=== PATIENT | male | born 1960 | race Caucasian/White ===

== ENCOUNTER 2017-08-18 12:25 | Emergency (ER) | payer MEDICAID ==
--- NOTE | 2017-08-18 12:36 | ED Physician Documentation ---
PD HPI ABD PAIN - Stated complaint Stated Complaint: UPPER GI PX - Chief complaint Chief Complaint: Cardiac - History obtained from History obtained from: Patient - History of Present Illness Timing - onset: Today (this morning about 5 am awoke with upper abd pain and had vomiting several times. Pain continues through morning.) Timing - duration: Hours Timing - details: Abrupt onset, Still present, Waxing and waning (feels better with vomiting) Quality: Cramping, Aching, Pain Location: Epigastric Radiation: Lower back Improved by: Vomiting Worsened by: Palpation. No: Breathing, Position Associated symptoms: Nausea, Vomiting. No: Fever, Diarrhea Similar symptoms before: Has not had sx before Recently seen: Not recently seen Review of Systems Constitutional: denies: Fever, Chills, Myalgias Nose: denies: Rhinorrhea / runny nose, Congestion Throat: denies: Sore throat Cardiac: denies: Chest pain / pressure, Palpitations Respiratory: denies: Dyspnea, Cough GI: reports: Abdominal Pain, Nausea, Vomiting. denies: Diarrhea, Hematemesis, Bloody / black stool : denies: Dysuria, Frequency Skin: denies: Rash, Lesions Neurologic: reports: Generalized weakness. denies: Focal weakness, Numbness, Near syncope Endocrine: denies: Weight loss, Easy bruising / bleeding Immunocompromised: denies: Immunocompromised PD PAST MEDICAL HISTORY - Past Medical History Cardiovascular: Hypertension, High cholesterol Respiratory: None Endocrine/Autoimmune: Type 1 diabetes, HyPOthyroidism GI: None : None HEENT: None Psych: None Musculoskeletal: Fatigue, Chronic back pain - Past Surgical History Past Surgical History: No - Present Medications Home Medications: Ambulatory Orders Medication Instructions Recorded Confirmed Aspirin [Aspir-Low] 81 mg PO DAILY 05/15/14 03/21/15 Gabapentin 300 mg PO 5XD 05/15/14 03/21/15 Levothyroxine [Synthroid] 1 mcg PO QDAC 05/15/14 03/21/15 Metformin HCl 500 mg PO BID 05/15/14 03/21/15 Methocarbamol [Robaxin] 500 mg PO TID 05/15/14 03/21/15 Naproxen [Naprosyn] 500 mg PO BID 05/15/14 03/21/15 Sertraline HCl [Zoloft] 25 mg PO DAILY 05/15/14 03/21/15 Simvastatin 40 mg PO DAILY 05/15/14 03/21/15 Docusate Sodium 100 mg PO DAILY #30 capsule 08/18/17 Famotidine [Pepcid] 20 mg PO BID #30 tablet 08/18/17 HYDROcod/ACETAM 5/325 [[place] 5/325] 1 tab PO Q6H PRN #15 tablet 08/18/17 Lidocaine Viscous 2% [Xylocaine 5 ml PO Q4H PRN #1 bottle 08/18/17 Viscous 2%] Ondansetron Odt [Zofran] 4 mg TL Q6H PRN #15 tablet 08/18/17 - Allergies Allergies/Adverse Reactions: Allergies Allergy/AdvReac Type Severity Reaction Status Date / Time morphine Allergy swelling Verified 03/21/15 15:01 niacin Allergy Rash Verified 05/15/14 16:44 phenazopyridine HCl * AdvReac Emesis Verified 05/15/14 16:44 [From Pyridium] sulfamethoxazole AdvReac Emesis Verified 05/15/14 16:44 [From Bactrim] trimethoprim [From Bactrim] AdvReac Emesis Verified 05/15/14 16:44 - Social History Does the pt smoke?: No Smoking Status: Never smoker Does the pt have substance abuse?: No - Immunizations Immunizations are current?: Yes PD ED PE NORMAL - Vitals Vital signs reviewed: Yes - General General: Alert and oriented X 3, No acute distress, Well developed/nourished - Neck Neck: Supple, no meningeal sign, No adenopathy - Cardiac Cardiac: RRR, No murmur - Respiratory Respiratory: Clear bilaterally - Abdomen Abdomen: Normal bowel sounds, Soft, Non distended, No organomegaly, Other (some tenderness without guarding in epigastric area) - Back Back: No CVA TTP - Derm Derm: Normal color, Warm and dry - Extremities Extremities: No deformity, No tenderness to palpate, No edema, No calf tenderness / cord - Neuro Neuro: Alert and oriented X 3, No motor deficit, Normal speech - Psych Psych: Normal mood, Normal affect Results - Vitals Vitals: Oxygen O2 Source Room air - EKG (time done) 12:33 Rate: Rate (enter#) (60) Rhythm: NSR [place]: Normal Intervals: Normal MT QRS: Normal Ischemia: Normal ST segments. No: ST elevation c/w ischemia, ST depression - Labs Labs: Laboratory Tests 08/18/17 08/18/17 08/18/17 12:40 12:40 12:40 WBC 10.0 RBC 4.47 L Hgb 14.1 Hct 40.7 L MCV 91.1 MCH 31.5 H MCHC 34.5 RDW 13.1 Plt Count 173 MPV 7.7 Neut # (Auto) 7.5 H Lymph # (Auto) 1.7 [place] # (Auto) 0.6 Eos # (Auto) 0.1 Baso # (Auto) 0.0 Absolute Nucleated RBC 0.00 Nucleated RBC % 0.0 Sodium 134 L Potassium 4.0 Chloride 99 L Carbon Dioxide 27 Anion Gap 8.0 BUN 21 H Creatinine 0.7 Estimated GFR (MDRD) 116 Glucose 141 H Calcium 9.3 Total Bilirubin 0.8 AST 25 ALT 27 Alkaline Phosphatase 90 Troponin I < 0.04 Total Protein 8.3 H Albumin 4.7 Globulin 3.6 Albumin/Globulin Ratio 1.3 Lipase 26 - Rads (name of study) chest Radiology: Prelim report reviewed, EMP read contemporaneously (no acute problem) upper abd US Radiology: Prelim report reviewed (fatty liver; no gallstones) PD MEDICAL DECISION MAKING - ED course Complexity details: reviewed results, considered differential (much improved with GI cocktail. Other labs are good with normal ECG and Trop, normal lipase, CXR. ), d/w patient - Sepsis Event Vital Signs: Oxygen O2 Source Room air Departure - Departure Disposition: 01 Home, Self Care Clinical Impression: Epigastric abdominal pain Condition: Stable Record reviewed to determine appropriate education?: Yes Instructions: ED PUD Vs Gastritis, ED Epigastric Pain [facility] Follow-Up: Kwaku Ulloa MD [Primary Care Provider] - Prescriptions: Docusate Sodium 100 mg PO DAILY #30 capsule Famotidine [Pepcid] 20 mg PO BID #30 tablet HYDROcod/ACETAM 5/325 [[place] 5/325] 1 tab PO Q6H PRN #15 tablet PRN Reason: Pain Lidocaine Viscous 2% [Xylocaine Viscous 2%] 5 ml PO Q4H PRN #1 bottle PRN Reason: Pain Ondansetron Odt [Zofran] 4 mg TL Q6H PRN #15 tablet PRN Reason: Nausea / Vomiting Comments: Frequent fluids and bland food for the next several days. Use famotidine twice daily to reduce stomach acids. Lidocaine if needed to coat the stomach and have symptom relief. You can use antacids with it such as Maalox or Mylanta. Consider using some antacid 4 times a day regularly. Add Tylenol or hydrocodone if needed for pain. Do not use any anti-inflammatories for the next couple of weeks. Ondansetron if needed for nausea. Uses stool softener daily to really reduce the chance of constipation from the medications. Call your primary care for an appointment follow-up for 2-3 days from now. Return sooner if worsening again. Your gallbladder pancreas and liver appear normal. Presume this is an irritation of the stomach such as gastritis or ulcer. Your heart also appears normal with EKG and blood tests. Discharge Date/Time: 08/18/17 16:19
[2017-08-18 12:45] LABS: BASOPHILS % (AUTO) 0.4 %; EOSINOPHILS # (AUTO) 0.1 10^3/uL (0.0-0.7); HGB - HEMOGLOBIN 14.1 g/dL (14.0-18.0); LYMPHOCYTES # (AUTO) 1.7 10^3/uL (1.5-3.5); MEAN CORPUSCULAR HEMOGLOBIN 31.5 pg (27.0-31.0); MEAN CORPUSCULAR HGB CONC 34.5 g/dL (32.0-36.0); MEAN CORPUSCULAR VOLUME 91.1 fL (80.0-94.0); MEAN PLATELET VOLUME 7.7 fL (7.4-11.4); MONOCYTES # (AUTO) 0.6 10^3/uL (0.0-1.0); MONOCYTES % (AUTO) 6.4 %; NEUTROPHILS # (AUTO) 7.5 10^3/uL (1.5-6.6); NEUTROPHILS % (AUTO) 75.2 %; PLT - PLATELET COUNT 173 10^3/uL (130-450); RED BLOOD COUNT 4.47 10^6/uL (4.70-6.10); RED CELL DISTRIBUTION WIDTH 13.1 % (12.0-15.0)
[2017-08-18] MEDS ORDERED: SODIUM CHLORIDE 0.9% 1,000 ML IV ONE (12:48)
[2017-08-18] MEDS ORDERED: ONDANSETRON 4 MG/2 ML VIAL IVP STA (12:48)
[2017-08-18] MEDS ORDERED: MAG HYDROX/AL HYDROX/SIMETH 30 ML UDC PO STA (12:49)
[2017-08-18] MEDS ORDERED: FAMOTIDINE 20 MG/50 ML 50 ML IV ONE (12:49)
[2017-08-18] MEDS ORDERED: LIDOCAINE VISCOUS 2% 15 ML UDC MM STA (12:49)
[2017-08-18] MEDS ORDERED: fentaNYL 100 MCG/2 ML VIAL IVP STA (12:49)
[2017-08-18 12:57] LABS: ALBUMIN 4.7 g/dL (3.2-5.5); ALBUMIN/GLOBULIN RATIO 1.3 (1.0-2.2); BILIRUBIN,TOTAL 0.8 mg/dL (0.2-1.0); CALCIUM 9.3 mg/dL (8.5-10.3); CREATININE 0.7 mg/dL (0.6-1.2); TOTAL PROTEIN 8.3 g/dL (6.7-8.2)
--- NOTE | 2017-08-18 13:19 | XRAY Report ---
Procedure Date: 08/18/2017 Accession Number: [id number] / [id number] Procedure: XR - Chest 2 View X-Ray CPT Code: 84561 FULL RESULT: EXAM: CHEST RADIOGRAPHY EXAM DATE: 08/18/2017 01:04 PM. CLINICAL HISTORY: Epigastric pain. COMPARISON: None. TECHNIQUE: 2 views. FINDINGS: Lungs/Pleura: No focal opacities evident. No pleural effusion. No pneumothorax. Normal volumes. Mediastinum: Heart and mediastinal contours are unremarkable. Other: None. IMPRESSION: Normal 2-view chest radiography. RAD[facility]
[2017-08-18] MEDS ORDERED: HYDROmorphone 2 MG/ML VIAL IVP STA ×2 (13:58→15:47)
[2017-08-18] MEDS ORDERED: SUCRALFATE 1 GM/10 ML UDC PO STA (14:28)
--- NOTE | 2017-08-18 14:42 | Ultrasound Report ---
Procedure Date: 08/18/2017 Accession Number: [id number] / [id number] Procedure: US - Abdomen Limited CPT Code: FULL RESULT: EXAM: Abdomen Limited DATE: 08/18/2017 2:32 PM CLINICAL HISTORY: epigastric/right upper abd pain onset this AM TECHNIQUE: Real time scanning by the computer numeric control setter was saved static images reviewed COMPARISON: None FINDINGS: Liver measures 18.7 cm longitudinally. There is increased echogenicity consistent with fatty infiltration. Focal sparing is noted near the gallbladder. Gallbladder appears normal. No stones or wall thickening. Common bile duct 5.3 mm. Unremarkable right kidney, 12.7 cm longitudinally. Free fluid: None. Other: Incidental note made of a fluid and debris filled distended stomach. IMPRESSION: Fatty infiltration of the liver. No gallstones.
[2017-08-18 15:56] VITALS: BP 121/74
== END 2017-08-18 16:19 | disposition home or self-care (01) ==
LOC: ED 12:25
DX: R10.13 Epigastric pain (principal); E03.9 Hypothyroidism, unspecified; E10.9 Type 1 diabetes mellitus without complications; E78.00 Pure hypercholesterolemia, unspecified; I10 Essential (primary) hypertension; Z79.82 Long term (current) use of aspirin
CPT/HCPCS: 36415; 71046; 76705; 80053; 83690; 84484; 85025; 93005; 96365; 96375; 96376; 99284; 99285; A9270; J1170

== ENCOUNTER 2018-01-12 19:18 | Emergency (ER) | payer MEDICAID ==
[2018-01-12 20:00] LABS: BILIRUBIN,URINE NEGATIVE (NEGATIVE); GLUCOSE, URINE (UA) NEGATIVE (NEGATIVE); KETONES,URINE (UA) NEGATIVE (NEGATIVE); LEUKOCYTE ESTERASE, URINE NEGATIVE (NEGATIVE); NITRITE,URINE NEGATIVE (NEGATIVE); OCCULT BLOOD,URINE LARGE (NEGATIVE); PH,URINE 5.5 PH (5.0-7.5); PROTEIN,URINE 30 mg/dL (NEGATIVE); UROBILINOGEN,URINE 0.2 (NORMAL) E.U./dL (NORMAL)
[2018-01-12 20:10] LABS: CLARITY,URINE CLOUDY (CLEAR); RBC,URINE TNTC /HPF (0-5)
[2018-01-12 20:11] LABS: BACTERIA,URINE None Seen /HPF (None Seen); SQUAMOUS EPITHELIAL CELL,UR NONE SEEN (<= Few)
--- NOTE | 2018-01-12 23:36 | ED Physician Documentation ---
PD HPI ABD PAIN - Stated complaint Stated Complaint: MALE /ABD PX - Chief complaint Chief Complaint: Back Pain - History obtained from History obtained from: Patient - History of Present Illness Timing - onset: How many weeks ago (1) Timing - duration: Weeks (1 week of flank pain, mainly left, and worse the past 3 days. Says was seen and Dx with kidney stone and on oral emds without improvement. Having hematuria still.) Timing - details: Gradual onset, Still present, Waxing and waning Quality: Aching, Sharp, Pain Location: Suprapubic, LLQ Radiation: Left flank Improved by: No: Eating, Position Worsened by: No: Eating, Breathing, Position, Palpation Associated symptoms: Nausea, Hematuria. No: Fever, Vomiting, Diarrhea, Constipation, Dysuria Similar symptoms before: Diagnosis (has had kidney stones in the past) Recently seen: Clinic Review of Systems Constitutional: denies: Fever Nose: denies: Rhinorrhea / runny nose, Congestion Throat: denies: Sore throat Cardiac: denies: Chest pain / pressure Respiratory: denies: Cough GI: reports: Abdominal Pain, Nausea. denies: Vomiting, Constipation, Diarrhea : reports: Hematuria. denies: Dysuria, Frequency, Discharge Skin: denies: Rash Neurologic: denies: Generalized weakness, Near syncope PD PAST MEDICAL HISTORY - Past Medical History Cardiovascular: Hypertension, High cholesterol Respiratory: None Endocrine/Autoimmune: Type 1 diabetes, HyPOthyroidism GI: None : None, Kidney stones HEENT: None Psych: None Musculoskeletal: Fatigue, Chronic back pain - Past Surgical History Past Surgical History: No - Present Medications Home Medications: Ambulatory Orders Medication Instructions Recorded Confirmed Aspirin [Aspir-Low] 81 mg PO DAILY 05/15/14 03/21/15 Gabapentin 300 mg PO 5XD 05/15/14 03/21/15 Levothyroxine [Synthroid] 1 mcg PO QDAC 05/15/14 03/21/15 Metformin HCl 500 mg PO BID 05/15/14 03/21/15 Methocarbamol [Robaxin] 500 mg PO TID 05/15/14 03/21/15 Naproxen [Naprosyn] 500 mg PO BID 05/15/14 03/21/15 Sertraline HCl [Zoloft] 25 mg PO DAILY 05/15/14 03/21/15 Simvastatin 40 mg PO DAILY 05/15/14 03/21/15 Docusate Sodium 100 mg PO DAILY #30 capsule 08/18/17 Famotidine [Pepcid] 20 mg PO BID #30 tablet 08/18/17 HYDROcod/ACETAM 5/325 [[place] 5/325] 1 tab PO Q6H PRN #15 tablet 08/18/17 Lidocaine Viscous 2% [Xylocaine 5 ml PO Q4H PRN #1 bottle 08/18/17 Viscous 2%] Ondansetron Odt [Zofran] 4 mg TL Q6H PRN #15 tablet 08/18/17 Naproxen 375 mg PO BID #20 tablet 01/13/18 Oxycodone HCl/Acetaminophen 1 - 2 each PO Q6H PRN #20 tablet 01/13/18 [Percocet 5-325 mg Tablet] Tamsulosin [Flomax] 0.4 mg PO DAILY #5 capsule 01/13/18 - Allergies Allergies/Adverse Reactions: Allergies Allergy/AdvReac Type Severity Reaction Status Date / Time morphine Allergy swelling Verified 01/12/18 19:39 niacin Allergy Rash Verified 01/12/18 19:39 phenazopyridine HCl * AdvReac Emesis Verified 01/12/18 19:39 [From Pyridium] sulfamethoxazole AdvReac Emesis Verified 01/12/18 19:39 [From Bactrim] trimethoprim [From Bactrim] AdvReac Emesis Verified 01/12/18 19:39 - Social History Does the pt smoke?: No Smoking Status: Never smoker Does the pt drink ETOH?: Yes Does the pt have substance abuse?: No - Immunizations Immunizations are current?: Yes - POLST Patient has POLST: No PD ED PE NORMAL - Vitals Vital signs reviewed: Yes - General General: Alert and oriented X 3, No acute distress, Well developed/nourished - Cardiac Cardiac: RRR, No murmur - Respiratory Respiratory: Clear bilaterally - Abdomen Abdomen: Normal bowel sounds, Soft, Non distended, No organomegaly - Male Male : Deferred - Rectal Rectal: Deferred - Back Back: No CVA TTP - Derm Derm: Normal color, Warm and dry Results - Vitals Vitals: Oxygen O2 Source Room air - Labs Labs: Laboratory Tests 01/12/18 19:48 Urine Color DK. ORANGE Urine Clarity CLOUDY Urine pH 5.5 Ur Specific [place] 1.025 Urine Protein 30 H Urine Glucose (UA) NEGATIVE Urine Ketones NEGATIVE Urine Occult Blood LARGE H Urine Nitrite NEGATIVE Urine Bilirubin NEGATIVE Urine Urobilinogen 0.2 (NORMAL) Ur Leukocyte Esterase NEGATIVE Urine RBC TNTC H Urine WBC 4-5 Ur Squamous Epith Cells NONE SEEN Urine Bacteria None Seen Ur Microscopic Review INDICATED Urine Culture Comments NOT INDICATED PD MEDICAL DECISION MAKING - ED course Complexity details: reviewed results, re-evaluated patient, considered differential, d/w patient Departure - Departure Disposition: 01 Home, Self Care Clinical Impression: Lower abdominal pain, Ureterolithiasis Condition: Stable Record reviewed to determine appropriate education?: Yes Instructions: ED Stone Renal Passed, ED Stone Renal W Colic Follow-Up: Montse Ulloa MD [Primary Care Provider] - Prescriptions: Naproxen 375 mg PO BID #20 tablet Oxycodone HCl/Acetaminophen [Percocet 5-325 mg Tablet] 1 - 2 each PO Q6H PRN #20 tablet PRN Reason: pain Tamsulosin [Flomax] 0.4 mg PO DAILY #5 capsule Comments: Drink lots of fluids. Naproxen anti-inflammatory twice daily for the next several days to week. Flomax daily for the next few days. Add Percocet if needed for pain. Recheck if not better in the next couple of days. There is no signs of urinary tract infection and your bladder seems to be emptying appropriately. Presume there was either still a small stone or you did pass the stone and are just having symptoms of small clots passing. We will see if this would clear up in the next couple of days. Discharge Date/Time: 01/13/18 00:40
[2018-01-12] MEDS ORDERED: KETOROLAC 30 MG/ML VIAL IM STA (23:55)
[2018-01-12] MEDS ORDERED: HYDROmorphone 2 MG/ML VIAL IM STA (23:55)
[2018-01-13 00:40] VITALS: BP 117/71
== END 2018-01-13 00:40 | disposition home or self-care (01) ==
LOC: ED 19:18
DX: N20.1 Calculus of ureter (principal); Z87.442 Personal history of urinary calculi; I10 Essential (primary) hypertension; E10.9 Type 1 diabetes mellitus without complications; Z79.84 Long term (current) use of oral hypoglycemic drugs
CPT/HCPCS: 81001; 96372; 99283; J1170; 81003; 87086

== ENCOUNTER 2019-05-23 08:00 | Outpatient (CLI) | payer MEDICAID ==
[2019-05-23 18:51] LABS: BASOPHILS % (AUTO) 0.5 %; EOSINOPHILS # (AUTO) 0.1 10^3/uL (0.0-0.7); EOSINOPHILS % (AUTO) 1.4 %; HGB - HEMOGLOBIN 12.8 g/dL (14.0-18.0); LYMPHOCYTES # (AUTO) 2.2 10^3/uL (1.5-3.5); LYMPHOCYTES % (AUTO) 35.1 %; MEAN CORPUSCULAR HEMOGLOBIN 29.3 pg (27.0-31.0); MEAN CORPUSCULAR HGB CONC 31.7 g/dL (32.0-36.0); MEAN CORPUSCULAR VOLUME 92.4 fL (80.0-94.0); MEAN PLATELET VOLUME 11.1 fL (7.4-11.4); MONOCYTES # (AUTO) 0.5 10^3/uL (0.0-1.0); MONOCYTES % (AUTO) 8.7 %; NEUTROPHILS # (AUTO) 3.4 10^3/uL (1.5-6.6); PLT - PLATELET COUNT 168 10^3/uL (130-450); RED BLOOD COUNT 4.37 10^6/uL (4.70-6.10); RED CELL DISTRIBUTION WIDTH 12.8 % (12.0-15.0); WHITE BLOOD COUNT 6.2 x10^3/uL (4.8-10.8)
[2019-05-23 19:19] LABS: ALBUMIN 4.5 g/dL (3.2-5.5); ALBUMIN/GLOBULIN RATIO 1.5 (1.0-2.2); ALKALINE PHOSPHATASE 96 IU/L (42-121); ALT ALANINE AMINOTRANSFERASE 41 IU/L (10-60); AST ASPARTATE AMINOTRANSFERASE 30 IU/L (10-42); BILIRUBIN,TOTAL 0.9 mg/dL (0.2-1.0); BUN - BLOOD UREA NITROGEN 16 mg/dL (6-20); CALCIUM 9.5 mg/dL (8.5-10.3); CARBON DIOXIDE - CO2 24 mmol/L (21-32); CHLORIDE 101 mmol/L (101-111); CHOL/HDL RATIO 3.5 (<5.0); CHOLESTEROL 132 mg/dL; CREATININE 0.8 mg/dL (0.6-1.2); GLUCOSE 247 mg/dL (70-100); HDL CHOLESTEROL 38 mg/dL; LDL CHOLESTEROL,CALCULATED 31 mg/dL; LDL/HDL RATIO 0.8 (<3.6); SODIUM 136 mmol/L (135-145); TOTAL PROTEIN 7.6 g/dL (6.7-8.2); VLDL CHOLESTEROL 63 mg/dL
[2019-05-23 21:39] LABS: HB2 TOTAL 13.8 g/dL; HEMOGLOBIN A1C 0.81 g/dL; HEMOGLOBIN A1C % 7.5 % (4.6-6.2)
[2019-05-23 21:40] LABS: MICROALBUM/CREATININE RATIO,UR 45.5 ug/mg (<30.0); MICROALBUMIN,URINE 1.5 mg/dL (0-300.0)
== END 2019-05-23 23:59 | disposition home or self-care (01) ==
LOC: LAB.WCP 08:00
PROVIDERS: ATTEND Family Medicine
DX: E11.9 Type 2 diabetes mellitus without complications (principal)
CPT/HCPCS: 36415; 80053; 80061; 82043; 82570; 83036; 83721; 84443; 85025

== ENCOUNTER 2019-08-23 11:00 | Outpatient (CLI) | payer MEDICAID ==
[2019-08-23 18:57] LABS: CALCIUM 9.4 mg/dL (8.5-10.3); CREATININE 0.8 mg/dL (0.6-1.2)
[2019-08-23 18:58] LABS: HB2 TOTAL 13.3 g/dL; HEMOGLOBIN A1C 0.84 g/dL; HEMOGLOBIN A1C % 7.9 % (4.6-6.2)
== END 2019-08-23 11:01 | disposition home or self-care (01) ==
LOC: LAB.WCP 11:00
PROVIDERS: ATTEND Nurse Practitioner Family
DX: E11.9 Type 2 diabetes mellitus without complications (principal)
CPT/HCPCS: 36415; 80048; 83036

== ENCOUNTER 2019-12-27 08:55 | Outpatient (CLI) | payer MEDICAID ==
[2019-12-27 12:07] LABS: CALCIUM 8.9 mg/dL (8.5-10.3); CREATININE 0.8 mg/dL (0.6-1.2)
[2019-12-27 16:51] LABS: HEMOGLOBIN A1c% 7.8 % (4.27-6.07)
== END 2019-12-27 08:56 | disposition home or self-care (01) ==
LOC: LAB.WCP 08:55
PROVIDERS: ATTEND Nurse Practitioner Family
DX: E11.9 Type 2 diabetes mellitus without complications (principal)
CPT/HCPCS: 36415; 80048; 83036

== ENCOUNTER 2020-03-27 08:26 | Outpatient (CLI) | payer MEDICAID ==
[2020-03-27 12:20] LABS: CALCIUM 8.9 mg/dL (8.5-10.3); CREATININE 0.9 mg/dL (0.6-1.2)
== END 2020-03-27 23:59 | disposition home or self-care (01) ==
LOC: LAB.WCP 08:26
PROVIDERS: ATTEND Nurse Practitioner Family
DX: E11.9 Type 2 diabetes mellitus without complications (principal)
CPT/HCPCS: 36415; 80048; 83036

== ENCOUNTER 2021-01-15 07:39 | Outpatient (CLI) | payer MEDICAID ==
[2021-01-15 12:10] LABS: BILIRUBIN,URINE NEGATIVE (NEGATIVE); GLUCOSE, URINE (UA) NEGATIVE (NEGATIVE); KETONES,URINE (UA) NEGATIVE (NEGATIVE); LEUKOCYTE ESTERASE, URINE NEGATIVE (NEGATIVE); NITRITE,URINE NEGATIVE (NEGATIVE); OCCULT BLOOD,URINE NEGATIVE (NEGATIVE); PROTEIN,URINE NEGATIVE (NEGATIVE); UROBILINOGEN,URINE 0.2 (NORMAL) E.U./dL (NORMAL)
[2021-01-15 12:14] LABS: CLARITY,URINE CLOUDY (CLEAR)
[2021-01-15 12:15] LABS: CREATININE,URINE 148.1 mg/dL; MICROALBUM/CREATININE RATIO,UR 4.7 ug/mg (<30.0); MICROALBUMIN,URINE 0.7 mg/dL (0-300.0)
[2021-01-15 12:21] LABS: AMORPHOUS SEDIMENT,UR Moderate /LPF; BACTERIA,URINE None Seen /HPF (None Seen); RBC,URINE None Seen /HPF (0-5); SQUAMOUS EPITHELIAL CELL,UR NONE SEEN (<= Few); WBC,URINE 0-3 /HPF (0-3)
[2021-01-15 12:26] LABS: ALBUMIN 4.6 g/dL (3.2-5.5); ALBUMIN/GLOBULIN RATIO 1.6 (1.0-2.2); ALKALINE PHOSPHATASE 81 IU/L (42-121); ALT ALANINE AMINOTRANSFERASE 54 IU/L (10-60); AST ASPARTATE AMINOTRANSFERASE 43 IU/L (10-42); BUN - BLOOD UREA NITROGEN 19 mg/dL (6-20); CALCIUM 9.8 mg/dL (8.5-10.3); CARBON DIOXIDE - CO2 26 mmol/L (21-32); CHLORIDE 104 mmol/L (101-111); CHOL/HDL RATIO 3.4 (<5.0); CHOLESTEROL 133 mg/dL; CREATININE 0.8 mg/dL (0.6-1.2); GFR - MDRD 99 (>89); GLUCOSE 190 mg/dL (70-100); HDL CHOLESTEROL 39 mg/dL; LDL CHOLESTEROL,CALCULATED 55 mg/dL; LDL/HDL RATIO 1.4 (<3.6); POTASSIUM 4.6 mmol/L (3.5-5.0); SODIUM 141 mmol/L (135-145); TOTAL PROTEIN 7.5 g/dL (6.7-8.2); TRIGLYCERIDES 195 mg/dL; VLDL CHOLESTEROL 39 mg/dL
[2021-01-15 12:35] LABS: THYROID STIMULATING HORMONE 8.38 uIU/mL (0.34-5.60)
[2021-01-15 12:37] LABS: FREE T4 (FREE THYROXINE) 0.79 ng/dL (0.58-1.64)
[2021-01-15 12:54] LABS: ESTIMATED AVERAGE GLUCOSE 171 mg/dL (70-100); HEMOGLOBIN A1c% 7.6 % (4.27-6.07)
[2021-01-15 12:56] LABS: BASOPHILS % (AUTO) 0.5 %; EOSINOPHILS # (AUTO) 0.1 10^3/uL (0.0-0.7); EOSINOPHILS % (AUTO) 2.5 %; HGB - HEMOGLOBIN 13.1 g/dL (14.0-18.0); LYMPHOCYTES # (AUTO) 1.3 10^3/uL (1.5-3.5); LYMPHOCYTES % (AUTO) 22.8 %; MEAN CORPUSCULAR HEMOGLOBIN 30.5 pg (27.0-31.0); MEAN CORPUSCULAR HGB CONC 32.8 g/dL (32.0-36.0); MEAN CORPUSCULAR VOLUME 93.2 fL (80.0-94.0); MEAN PLATELET VOLUME 10.7 fL (7.4-11.4); MONOCYTES # (AUTO) 0.6 10^3/uL (0.0-1.0); MONOCYTES % (AUTO) 10.4 %; NEUTROPHILS # (AUTO) 3.5 10^3/uL (1.5-6.6); NEUTROPHILS % (AUTO) 63.4 %; PLT - PLATELET COUNT 148 10^3/uL (130-450); RED BLOOD COUNT 4.29 10^6/uL (4.70-6.10); RED CELL DISTRIBUTION WIDTH 12.6 % (12.0-15.0); WHITE BLOOD COUNT 5.6 x10^3/uL (4.8-10.8)
== END 2021-01-15 23:59 | disposition home or self-care (01) ==
LOC: LAB.WCP 07:39
PROVIDERS: ATTEND Nurse Practitioner
DX: E11.9 Type 2 diabetes mellitus without complications (principal); E03.9 Hypothyroidism, unspecified; Z12.5 Encounter for screening for malignant neoplasm of prostate
CPT/HCPCS: 36415; 80053; 80061; 81001; 82043; 82570; 83036; 83721; 84153; 84439; 84443; 85025; 87086

== ENCOUNTER 2022-01-21 09:53 | Outpatient (CLI) | payer MEDICAID ==
[2022-01-21 10:21] LABS: MICROALBUM/CREATININE RATIO,UR 4.1 ug/mg (<30.0); MICROALBUMIN,URINE 0.4 mg/dL (0-300.0)
[2022-01-21 10:24] LABS: CALCIUM 9.2 mg/dL (8.5-10.3); CREATININE 0.8 mg/dL (0.6-1.2)
[2022-01-21 10:39] LABS: THYROID STIMULATING HORMONE 3.81 uIU/mL (0.34-5.60)
[2022-01-21 10:41] LABS: FREE T4 (FREE THYROXINE) 0.77 ng/dL (0.58-1.64)
[2022-01-21 10:46] LABS: ESTIMATED AVERAGE GLUCOSE 166 mg/dL (70-100); HEMOGLOBIN A1c% 7.4 % (4.27-6.07)
== END 2022-01-21 09:54 | disposition home or self-care (01) ==
LOC: LAB 09:53
PROVIDERS: ATTEND Nurse Practitioner
DX: E11.9 Type 2 diabetes mellitus without complications (principal); E03.9 Hypothyroidism, unspecified
CPT/HCPCS: 36415; 80048; 82043; 82570; 83036; 84439; 84443

== ENCOUNTER 2022-07-07 16:20 | Emergency (ER) | payer MEDICAID ==
[2022-07-07 17:01] LABS: BASOPHILS % (AUTO) 0.4 %; EOSINOPHILS # (AUTO) 0.1 10^3/uL (0.0-0.7); EOSINOPHILS % (AUTO) 1.7 %; HCT - HEMATOCRIT 38.6 % (42.0-52.0); HGB - HEMOGLOBIN 12.8 g/dL (14.0-18.0); LYMPHOCYTES # (AUTO) 1.8 10^3/uL (1.5-3.5); MEAN CORPUSCULAR HEMOGLOBIN 30.6 pg (27.0-31.0); MEAN CORPUSCULAR HGB CONC 33.2 g/dL (32.0-36.0); MEAN CORPUSCULAR VOLUME 92.3 fL (80.0-94.0); MEAN PLATELET VOLUME 9.7 fL (7.4-11.4); MONOCYTES # (AUTO) 0.7 10^3/uL (0.0-1.0); MONOCYTES % (AUTO) 8.7 %; NEUTROPHILS # (AUTO) 5.4 10^3/uL (1.5-6.6); NEUTROPHILS % (AUTO) 66.8 %; PLT - PLATELET COUNT 153 10^3/uL (130-450); RED BLOOD COUNT 4.18 10^6/uL (4.70-6.10)
[2022-07-07] MEDS ORDERED: KETOROLAC 15 MG/ML VIAL IVP STA (17:09)
[2022-07-07] MEDS ORDERED: HYDROmorphone 1 MG/ML CARPUJECT IVP STA (17:09)
--- NOTE | 2022-07-07 17:10 | ED Physician Documentation ---
PD HPI ABD PAIN - Stated complaint Stated Complaint: ABD PX - Chief complaint Chief Complaint: Abd Pain - History obtained from History obtained from: Patient - Additional information Additional information: 61-year-old with history of type 2 diabetes, recurrent renal colic needing intervention in the past, sees Dr. Kang developed sudden onset left-sided abdominal pain around 245 today associated with nausea and lightheadedness. It is similar to prior renal colic. He has no specific urinary symptoms at this point. He is here with his who is a nurse. PD PAST MEDICAL HISTORY - Past Medical History Cardiovascular: Hypertension, High cholesterol Respiratory: None Endocrine/Autoimmune: Type 1 diabetes, HyPOthyroidism GI: None : None, Kidney stones HEENT: None Psych: None Musculoskeletal: Fatigue, Chronic back pain - Past Surgical History Past Surgical History: No General: Colonoscopy - Present Medications Home Medications: Ambulatory Orders Medication Instructions Recorded Confirmed Aspirin [Aspir-Low] 81 mg PO DAILY 05/15/14 03/21/15 Gabapentin 300 mg PO 5XD 05/15/14 03/21/15 Levothyroxine [Synthroid] 1 mcg PO QDAC 05/15/14 03/21/15 Metformin HCl 500 mg PO BID 05/15/14 03/21/15 Naproxen [Naprosyn] 500 mg PO BID 05/15/14 03/21/15 Sertraline HCl [Zoloft] 25 mg PO DAILY 05/15/14 03/21/15 Simvastatin 40 mg PO DAILY 05/15/14 03/21/15 methocarbamoL [Robaxin] 500 mg PO TID 05/15/14 03/21/15 Docusate Sodium 100 mg PO DAILY #30 capsule 08/18/17 Famotidine [Pepcid] 20 mg PO BID #30 tablet 08/18/17 HYDROcod/ACETAM 5/325 [[place] 5/325] 1 tab PO Q6H PRN #15 tablet 08/18/17 Lidocaine Viscous 2% [Xylocaine 5 ml PO Q4H PRN #1 bottle 08/18/17 Viscous 2%] Ondansetron Odt [Zofran] 4 mg TL Q6H PRN #15 tablet 08/18/17 Naproxen 375 mg PO BID #20 tablet 01/13/18 Oxycodone HCl/Acetaminophen 1 - 2 each PO Q6H PRN #20 tablet 01/13/18 [Percocet 5-325 mg Tablet] Tamsulosin [Flomax] 0.4 mg PO DAILY #5 capsule 01/13/18 Ondansetron Odt [Zofran] 4 mg TL Q6H PRN #10 tablet 10/01/19 Oxycodone HCl/Acetaminophen 1 - 2 each PO Q6H PRN #14 tablet 10/01/19 [Percocet 5-325 mg Tablet] cephALEXin [Keflex] 500 mg PO Q6H #28 capsule 10/01/19 Dicyclomine [Bentyl] 1 - 2 tab PO QID PRN #20 cap 07/07/22 HYDROcod/ACETAM 5/325 [[place] 5/325] 1 - 2 tab PO Q6H PRN #10 tablet 07/07/22 - Allergies Allergies/Adverse Reactions: Allergies Allergy/AdvReac Type Severity Reaction Status Date / Time morphine Allergy swelling Verified 07/07/22 16:42 niacin Allergy Rash Verified 07/07/22 16:42 phenazopyridine HCl * AdvReac Emesis Verified 07/07/22 16:42 [From Pyridium] sulfamethoxazole AdvReac Emesis Verified 07/07/22 16:42 [From Bactrim] trimethoprim [From Bactrim] AdvReac Emesis Verified 07/07/22 16:42 - Social History Does the pt smoke?: No Smoking Status: Former smoker Does the pt drink ETOH?: No Does the pt have substance abuse?: No - Immunizations Immunizations are current?: Yes - POLST Patient has POLST: No PD ED PE NORMAL - Vitals Vital signs reviewed: Yes - General General: Alert and oriented X 3, Other (Appears uncomfortable holding emesis bag) - Abdomen Abdomen: Normal bowel sounds, Soft, Non tender - Back Back: Other (Mild left flank tenderness) - Derm Derm: Normal color, Warm and dry - Extremities Extremities: No edema, No calf tenderness / cord - Neuro Neuro: Alert and oriented X 3, Normal speech Results - Vitals Vitals: Vital Signs - 24 hr 07/07/22 16:39 Temperature 36.1 C L Heart Rate 58 L Respiratory 20 Rate Blood Pressure 109/57 L O2 Saturation 100 Oxygen O2 Source Room air - Labs Labs: Laboratory Tests 07/07/22 07/07/22 07/07/22 16:56 16:56 17:35 WBC 8.0 RBC 4.18 L Hgb 12.8 L Hct 38.6 L MCV 92.3 MCH 30.6 MCHC 33.2 RDW 12.0 Plt Count 153 MPV 9.7 Neut # (Auto) 5.4 Lymph # (Auto) 1.8 [place] # (Auto) 0.7 Eos # (Auto) 0.1 Baso # (Auto) 0.0 Absolute Nucleated RBC 0.00 Nucleated RBC % 0.0 Sodium 136 Potassium 4.3 Chloride 99 L Carbon Dioxide 24 Anion Gap 13.0 BUN 25 H Creatinine 0.9 Estimated GFR (MDRD) 86 L Glucose 190 H Calcium 9.7 Total Bilirubin 0.8 AST 25 ALT 33 Alkaline Phosphatase 82 Total Protein 7.8 Albumin 4.3 Globulin 3.5 Albumin/Globulin Ratio 1.2 Lipase 31 Urine Color YELLOW Urine Clarity CLEAR Urine pH 5.5 Ur Specific [place] >=1.030 H Urine Protein NEGATIVE Urine Glucose (UA) 250 H Urine Ketones NEGATIVE Urine Occult Blood NEGATIVE Urine Nitrite NEGATIVE Urine Bilirubin NEGATIVE Urine Urobilinogen 0.2 (NORMAL) Ur Leukocyte Esterase NEGATIVE Ur Microscopic Review NOT INDICATED Urine Culture Comments NOT INDICATED PD Medical Decision Making - ED course ED course: 61-year-old gentleman with acute abdominal pain, fairly benign exam. Initially kidney stone was presumed given his history of same. CBC shows mild anemia. CMP shows mild hyperglycemia. Urinalysis with glucosuria, no blood or other findings. CT suggestive of an enteritis. Patient was relieved that it was not a recurrent kidney stone and feeling much better after the administration of IV Toradol and Dilaudid here. Departure - Departure Disposition: 01 Home, Self Care Clinical Impression: Enteritis Condition: Good Record reviewed to determine appropriate education?: Yes Instructions: Abdominal Pain Prescriptions: Dicyclomine [Bentyl] 1 - 2 tab PO QID PRN #20 cap PRN Reason: Abdominal Pain HYDROcod/ACETAM 5/325 [[place] 5/325] 1 - 2 tab PO Q6H PRN #10 tablet PRN Reason: Pain Comments: As discussed, what we found today as it looks like you have an enteritis which is generally a viral stomach bug that should be fairly transient. We would expect it to be gone in the next 24 to 36 hours. Return tomorrow afternoon if not improving, anytime if worse. I sent your prescriptions electronically to [facility] in [place]. I am prescribing a short course of narcotic pain medication for you. These are potentially dangerous and addictive medications that should be used carefully. These medications may constipate you. Take an [id number] stool softener (docusate) twice daily with plenty of water while taking these medications. If you go 24 hours without a bowel movement, take [id number] miralax, per package instructions. Do not drink or drive while taking these medications. If you received narcotic or sedating medications while in the emergency department, do not drive for 24 hours. Store this medication in a safe, secure place and out of reach of children. It is a violation of federal law to give or sell this medication to another person or to use in a manner other than prescribed. The ED will not refill narcotic prescriptions, including prescriptions lost or stolen. To dispose of unwanted medications: 1. [facility] at [address] in [place] has a medication drop box. They accept prescription medications (in pill form) Thursday through Thursday 9:00 a.m. to 5:00 p.m. 2. The [facility] [employer] accepts prescription medications (in pill form only) for disposal year round. Call for more information. 3. Contact the [facility] for the next [facility] sponsored prescription drug collection event. , [phone], or [phone]; Note that many narcotic pain relievers also contain Tylenol/acetaminophen. Please ensure that your total dose of acetaminophen from all sources does not exceed 3 g (3000 mg) per day. Clear liquid diet for the next 24 hours.
[2022-07-07 17:14] LABS: ALBUMIN 4.3 g/dL (3.2-5.5); ALBUMIN/GLOBULIN RATIO 1.2 (1.0-2.2); BILIRUBIN,TOTAL 0.8 mg/dL (0.2-1.0); CALCIUM 9.7 mg/dL (8.5-10.3); CREATININE 0.9 mg/dL (0.6-1.2); POTASSIUM 4.3 mmol/L (3.5-5.0); TOTAL PROTEIN 7.8 g/dL (6.7-8.2)
[2022-07-07] MEDS ORDERED: SODIUM CHLORIDE 0.9% 1,000 ML IV STA (17:18)
--- NOTE | 2022-07-07 17:54 | CT Report ---
PROCEDURE: ABDOMEN/PELVIS WO INDICATIONS: L flank pain TECHNIQUE: Noncontrast 5 mm thick sections acquired from the diaphragms to the symphysis. 5 mm coronal and sagi ttal reformats were then performed. For radiation dose reduction, the following was used: automated exposure control, adjustment of mA and/or kV according to patient size. COMPARISON: 06/01/2019 CT examination FINDINGS: Image quality: Excellent. Lung bases and heart: Unremarkable. Liver: No solid mass. Gallbladder and biliary tree: Is contracted Spleen: No splenomegaly. Pancreas: No pancreatic ductal dilation. Adrenals: No adrenal nodule. Kidneys and ureters: No hydronephrosis. No renal cystic lesion which requires follow up. No solid mas s. Bowel and peritoneum: There is mild small bowel distention within the left upper quadrant. Mild groun dglass density within the central mesentery with mild mesenteric lymph node prominence. Normal append ix. Lymph nodes: No central or retroperitoneal adenopathy. Vessels: No infrarenal aortic aneurysm. PELVIS Reproductive organs: Unremarkable. Bladder: No abnormal wall thickening, accounting for underdistension. Pelvic lymph nodes: No pelvic adenopathy by size criteria. Bones: No aggressive osseous abnormality. Other: No significant ventral or inguinal hernia. IMPRESSION: 1. No evidence of urinary tract calcification, nor obstruction. 2. Findings suggestive of gastroenteritis. 3. Normal appendix. Reviewed by: Antony Hernandez MD on 07/07/2022 5:52 PM PDT Approved by: Antony Hernandez MD on 07/07/2022 5:52 PM PDT Station ID: [id number]
[2022-07-07 17:56] LABS: BILIRUBIN,URINE NEGATIVE (NEGATIVE); GLUCOSE, URINE (UA) 250 mg/dL (NEGATIVE); KETONES,URINE (UA) NEGATIVE (NEGATIVE); LEUKOCYTE ESTERASE, URINE NEGATIVE (NEGATIVE); NITRITE,URINE NEGATIVE (NEGATIVE); OCCULT BLOOD,URINE NEGATIVE (NEGATIVE); PH,URINE 5.5 PH (5.0-7.5); PROTEIN,URINE NEGATIVE (NEGATIVE); UROBILINOGEN,URINE 0.2 (NORMAL) E.U./dL (NORMAL)
[2022-07-07 17:59] LABS: CLARITY,URINE CLEAR (CLEAR)
[2022-07-07 18:45] VITALS: BP 125/77
== END 2022-07-07 18:45 | disposition home or self-care (01) ==
LOC: ED 16:20
DX: K52.9 Noninfective gastroenteritis and colitis, unspecified (principal); I10 Essential (primary) hypertension; E78.00 Pure hypercholesterolemia, unspecified; E03.9 Hypothyroidism, unspecified; E11.9 Type 2 diabetes mellitus without complications; Z79.899 Other long term (current) drug therapy; Z79.84 Long term (current) use of oral hypoglycemic drugs; Z79.82 Long term (current) use of aspirin; Z87.891 Personal history of nicotine dependence
CPT/HCPCS: 36415; 74176; 80053; 81003; 83690; 85025; 96374; 96375; 99284; J1170; 81001; 87086

== ENCOUNTER 2022-11-01 15:32 | Emergency (ER) | payer MEDICAID ==
[2022-11-01] MEDS ORDERED: methylPREDNISolone SUCCINATE 125 MG/2 ML VIAL IVP STA (15:43)
[2022-11-01] MEDS ORDERED: diphenhydrAMINE INJ 50 MG/ML VIAL IVP STA (15:43)
--- NOTE | 2022-11-01 16:24 | ED Physician Documentation ---
History of Present Illness - Stated complaint Stated Complaint: STUNG BY BEE/FACE SWELLING - Chief complaint Chief Complaint: Allergic Rx - History obtained from History obtained from: Patient, Family - History of Present Illness Timing: Today - Additonal information Additional information: Patient is a 62-year-old male who was stung in the face multiple times by bees today. He has a known bee allergy. Took Benadryl 25 mg and Zyrtec prior to arrival. No difficulty speaking, swallowing or breathing. Nothing makes it better or worse. He states he did have an episode many years ago of anaphylaxis. He did have a bee sting about a month ago that did not have any anaphylactic component to it. Review of Systems Constitutional: denies: Fever, Chills Cardiac: denies: Chest pain / pressure Respiratory: denies: Cough GI: denies: Nausea, Vomiting, Diarrhea Skin: denies: Rash Musculoskeletal: denies: Neck pain, Back pain Neurologic: denies: Headache PD PAST MEDICAL HISTORY - Past Medical History Cardiovascular: Hypertension, High cholesterol Respiratory: None Endocrine/Autoimmune: Type 1 diabetes, HyPOthyroidism GI: None : None, Kidney stones HEENT: None Psych: None Musculoskeletal: Fatigue, Chronic back pain - Past Surgical History Past Surgical History: No General: Colonoscopy - Present Medications Home Medications: Ambulatory Orders Medication Instructions Recorded Confirmed Aspirin [Aspir-Low] 81 mg PO DAILY 05/15/14 03/21/15 Gabapentin 300 mg PO 5XD 05/15/14 03/21/15 Levothyroxine [Synthroid] 1 mcg PO QDAC 05/15/14 03/21/15 Metformin HCl 500 mg PO BID 05/15/14 03/21/15 Naproxen [Naprosyn] 500 mg PO BID 05/15/14 03/21/15 Sertraline HCl [Zoloft] 25 mg PO DAILY 05/15/14 03/21/15 Simvastatin 40 mg PO DAILY 05/15/14 03/21/15 methocarbamoL [Robaxin] 500 mg PO TID 05/15/14 03/21/15 Docusate Sodium 100 mg PO DAILY #30 capsule 08/18/17 Famotidine [Pepcid] 20 mg PO BID #30 tablet 08/18/17 HYDROcod/ACETAM 5/325 [[place] 5/325] 1 tab PO Q6H PRN #15 tablet 08/18/17 Lidocaine Viscous 2% [Xylocaine 5 ml PO Q4H PRN #1 bottle 08/18/17 Viscous 2%] Ondansetron Odt [Zofran] 4 mg TL Q6H PRN #15 tablet 08/18/17 Naproxen 375 mg PO BID #20 tablet 01/13/18 Oxycodone HCl/Acetaminophen 1 - 2 each PO Q6H PRN #20 tablet 01/13/18 [Percocet 5-325 mg Tablet] Tamsulosin [Flomax] 0.4 mg PO DAILY #5 capsule 01/13/18 Ondansetron Odt [Zofran] 4 mg TL Q6H PRN #10 tablet 10/01/19 Oxycodone HCl/Acetaminophen 1 - 2 each PO Q6H PRN #14 tablet 10/01/19 [Percocet 5-325 mg Tablet] cephALEXin [Keflex] 500 mg PO Q6H #28 capsule 10/01/19 Dicyclomine [Bentyl] 1 - 2 tab PO QID PRN #20 cap 07/07/22 HYDROcod/ACETAM 5/325 [[place] 5/325] 1 - 2 tab PO Q6H PRN #10 tablet 07/07/22 EPINEPHrine [Epinephrine] 0.3 mg IJ ONCE PRN #1 each 11/01/22 predniSONE [Deltasone] 40 mg PO DAILY #10 tablet 11/01/22 - Allergies Allergies/Adverse Reactions: Allergies Allergy/AdvReac Type Severity Reaction Status Date / Time morphine Allergy swelling Verified 07/07/22 16:42 niacin Allergy Rash Verified 07/07/22 16:42 phenazopyridine HCl * AdvReac Emesis Verified 07/07/22 16:42 [From Pyridium] sulfamethoxazole AdvReac Emesis Verified 07/07/22 16:42 [From Bactrim] trimethoprim [From Bactrim] AdvReac Emesis Verified 07/07/22 16:42 - Social History Does the pt smoke?: No Smoking Status: Former smoker Does the pt drink ETOH?: No Does the pt have substance abuse?: No - Immunizations Immunizations are current?: Yes - POLST Patient has POLST: No PD ED PE NORMAL - Vitals Vital signs reviewed: Yes - General General: Alert and oriented X 3, No acute distress - HEENT HEENT: Moist mucous membranes, Other (Normal phonation. No trismus. Mild facial swelling.) - Neck Neck: Supple, no meningeal sign - Cardiac Cardiac: RRR - Respiratory Respiratory: No respiratory distress, Clear bilaterally - Abdomen Abdomen: Soft - Derm Derm: Other (Mild urticaria on the right side of the neck) - Extremities Extremities: No edema, No calf tenderness / cord - Neuro Neuro: Alert and oriented X 3 Results - Vitals Vitals: Vital Signs - 24 hr 11/01/22 11/01/22 11/01/22 15:40 15:45 17:48 Temperature 36.0 C L Heart Rate 82 70 78 Respiratory 18 15 15 Rate Blood Pressure 118/80 109/66 113/69 O2 Saturation 95 95 94 Oxygen O2 Source Room air PD Medical Decision Making - ED course Complexity details: re-evaluated patient, considered differential, d/w patient, d/w family ED course: Patient with localized swelling after being stung by bees today. No evidence of anaphylaxis. No systemic symptoms. He was given IV Benadryl and Solu-Medrol here. Was given a dose of prednisone prior to discharge as pharmacies are closed tonight. He was observed for several hours, swelling decreased and he feels better. No difficulty breathing or speaking. No significant vital sign abnormalities. I will prescribe an EpiPen for home as well. Patient will be at home with his today. Patient counseled regarding signs and symptoms for which I believe and urgent re-evaluation would be necessary. Patient with good understanding of and agreement to plan and is comfortable going home at this time This document was made in part using voice recognition software. While efforts are made to proofread this document, sound alike and grammatical errors may occur. Departure - Departure Disposition: 01 Home, Self Care Clinical Impression: Bee sting Qualifiers: Encounter type: initial encounter Injury intent: undetermined intent Qualified Code(s): T63.444A - Toxic effect of venom of bees, undetermined, initial encounter Condition: Good Instructions: ED Allergic Reaction Local Other Follow-Up: Keya Avila ARNP [Primary Care Provider] - Prescriptions: predniSONE [Deltasone] 40 mg PO DAILY #10 tablet EPINEPHrine [Epinephrine] 0.3 mg IJ ONCE PRN #1 each PRN Reason: Anaphylaxis Comments: Continue the steroids at home. Please follow-up with your doctor as needed for further care. You are also prescribed an epinephrine pen, if you start to have difficulty breathing, use the epinephrine and go to your nearest emergency department. The epinephrine will wear off within about 45 minutes to an hour. Your prescriptions were sent to [facility] in [place]. Forms: PCP List Discharge Date/Time: 11/01/22 17:48
[2022-11-01] MEDS ORDERED: predniSONE 20 MG TABLET PO STA (17:27)
[2022-11-01 17:52] VITALS: BP 113/69; O2SAT 94
== END 2022-11-01 17:48 | disposition home or self-care (01) ==
LOC: ED 15:32
DX: T63.441A Toxic effect of venom of bees, accidental (unintentional), initial encounter (principal); I10 Essential (primary) hypertension; E10.9 Type 1 diabetes mellitus without complications; Z87.891 Personal history of nicotine dependence
CPT/HCPCS: 96374; 96375; 99283; J1200; J7512

== ENCOUNTER 2022-12-23 09:43 | Outpatient (CLI) | payer MEDICAID ==
[2022-12-23 09:56] LABS: BASOPHILS % (AUTO) 0.6 %; EOSINOPHILS # (AUTO) 0.2 10^3/uL (0.0-0.7); EOSINOPHILS % (AUTO) 3.1 %; HCT - HEMATOCRIT 36.8 % (42.0-52.0); HGB - HEMOGLOBIN 12.2 g/dL (14.0-18.0); LYMPHOCYTES # (AUTO) 1.8 10^3/uL (1.5-3.5); LYMPHOCYTES % (AUTO) 35.2 %; MEAN CORPUSCULAR HEMOGLOBIN 30.7 pg (27.0-31.0); MEAN CORPUSCULAR HGB CONC 33.2 g/dL (32.0-36.0); MEAN CORPUSCULAR VOLUME 92.5 fL (80.0-94.0); MEAN PLATELET VOLUME 9.2 fL (7.4-11.4); MONOCYTES # (AUTO) 0.5 10^3/uL (0.0-1.0); NEUTROPHILS # (AUTO) 2.6 10^3/uL (1.5-6.6); NEUTROPHILS % (AUTO) 50.9 %; PLT - PLATELET COUNT 120 10^3/uL (130-450); RED BLOOD COUNT 3.98 10^6/uL (4.70-6.10); RED CELL DISTRIBUTION WIDTH 12.5 % (12.0-15.0); WHITE BLOOD COUNT 5.1 x10^3/uL (4.8-10.8)
[2022-12-23 10:13] LABS: CALCIUM 9.3 mg/dL (8.5-10.3); CREATININE 0.8 mg/dL (0.6-1.3); POTASSIUM 4.9 mmol/L (3.5-4.5)
[2022-12-23 10:32] LABS: FERRITIN 18.1 ng/mL (23.9-336.2)
[2022-12-23 12:33] LABS: ESTIMATED AVERAGE GLUCOSE 174 mg/dL (70-100); HEMOGLOBIN A1c% 7.7 % (4.27-6.07)
== END 2022-12-23 09:44 | disposition home or self-care (01) ==
LOC: LAB 09:43
PROVIDERS: ATTEND Internal Medicine
DX: E11.9 Type 2 diabetes mellitus without complications (principal); D64.9 Anemia, unspecified
CPT/HCPCS: 36415; 80048; 82607; 82728; 83036; 83540; 84466; 85025

== ENCOUNTER 2023-03-30 08:48 | Outpatient (CLI) | payer MEDICAID ==
[2023-03-30 09:44] LABS: FERRITIN 17.3 ng/mL (23.9-336.2)
[2023-03-30 11:54] LABS: ESTIMATED AVERAGE GLUCOSE 166 mg/dL (70-100); HEMOGLOBIN A1c% 7.4 % (4.27-6.07)
== END 2023-03-30 08:49 | disposition home or self-care (01) ==
LOC: LAB 08:48
PROVIDERS: ATTEND Nurse Practitioner
DX: D64.9 Anemia, unspecified (principal); E11.9 Type 2 diabetes mellitus without complications
CPT/HCPCS: 36415; 82728; 83036; 83540; 84466

== ENCOUNTER 2023-08-01 08:53 | Outpatient (CLI) | payer MEDICAID ==
[2023-08-01 09:28] LABS: BASOPHILS % (AUTO) 0.7 %; EOSINOPHILS # (AUTO) 0.2 10^3/uL (0.0-0.7); EOSINOPHILS % (AUTO) 3.3 %; HCT - HEMATOCRIT 37.5 % (42.0-52.0); HGB - HEMOGLOBIN 12.4 g/dL (14.0-18.0); LYMPHOCYTES # (AUTO) 2.3 10^3/uL (1.5-3.5); LYMPHOCYTES % (AUTO) 41.8 %; MEAN CORPUSCULAR HEMOGLOBIN 30.5 pg (27.0-31.0); MEAN CORPUSCULAR HGB CONC 33.1 g/dL (32.0-36.0); MEAN CORPUSCULAR VOLUME 92.1 fL (80.0-94.0); MEAN PLATELET VOLUME 9.5 fL (7.4-11.4); MONOCYTES # (AUTO) 0.5 10^3/uL (0.0-1.0); MONOCYTES % (AUTO) 9.4 %; NEUTROPHILS # (AUTO) 2.4 10^3/uL (1.5-6.6); NEUTROPHILS % (AUTO) 44.6 %; PLT - PLATELET COUNT 145 10^3/uL (130-450); RED BLOOD COUNT 4.07 10^6/uL (4.70-6.10); RED CELL DISTRIBUTION WIDTH 12.3 % (12.0-15.0); WHITE BLOOD COUNT 5.5 x10^3/uL (4.8-10.8)
[2023-08-01 09:43] LABS: CREATININE,URINE 135.8 mg/dL; MICROALBUM/CREATININE RATIO,UR 7.4 ug/mg (<30.0)
[2023-08-01 10:28] LABS: ESTIMATED AVERAGE GLUCOSE 166 mg/dL (70-100); HEMOGLOBIN A1c% 7.4 % (4.27-6.07)
== END 2023-08-01 08:54 | disposition home or self-care (01) ==
LOC: LAB 08:53
PROVIDERS: ATTEND Nurse Practitioner
DX: E11.9 Type 2 diabetes mellitus without complications (principal); D64.9 Anemia, unspecified
CPT/HCPCS: 36415; 82043; 82570; 82728; 83036; 85025